=== PATIENT | female | born 1990 | race Asian ===

== ENCOUNTER 2017-05-06 12:22 | Inpatient (IN) | payer OTHER ==
[~2017-05-06] VITALS: Ht 170.2 cm; Wt 59.0 kg
[2017-05-06 12:30] VITALS: BP_SYST 121
[2017-05-06 13:34] LABS: BASOPHILS % (AUTO) 0.5 % (0.0-2.0); EOSINOPHILS # (AUTO) 0.1 K/uL (0.0-0.4); EOSINOPHILS % (AUTO) 1.7 % (0.0-4.0); HEMATOCRIT 39.8 % (36-48); HEMOGLOBIN 13.2 g/dL (12.0-16.0); LYMPHOCYTES # (AUTO) 1.6 K/uL (1.0-5.5); LYMPHOCYTES % (AUTO) 24.7 % (20.5-51.5); MEAN CORPUSCULAR HEMOGLOBIN 30 pg (27-31); MEAN CORPUSCULAR HGB CONC 33 % (32-36); MEAN CORPUSCULAR VOLUME 89 fL (79.0-98.0); MONOCYTES # (AUTO) 0.3 K/uL (0.0-1.0); MONOCYTES % (AUTO) 3.9 % (1.7-9.3); NEUTROPHILS # (AUTO) 4.6 K/uL (1.8-7.7); NEUTROPHILS % (AUTO) 69.2 % (40.0-70.0); PLATELET COUNT (AUTO) 331 K/uL (130-430); RED BLOOD CELL COUNT(AUTO) 4.48 MIL/uL (4.2-6.2); RED CELL DISTRIBUTION WIDTH 11.6 % (9.0-15.0); WHITE BLOOD COUNT (AUTO) 6.6 K/uL (4.8-10.8)
[2017-05-06 13:53] LABS: CALCIUM 9.2 mg/dL (8.4-11.0); CREATININE 0.66 mg/dL (0.55-1.30); POTASSIUM 3.6 mmol/L (3.5-5.1)
[2017-05-06 14:20] LABS: BILIRUBIN,URINE NEGATIVE (NEGATIVE); BLOOD, URINE NEGATIVE (NEGATIVE); CLARITY/URINE CLEAR (CLEAR); COLOR,URINE YELLOW (YELLOW); GLUCOSE,URINE NEGATIVE (NEGATIVE); KETONES,URINE 2+ (NEGATIVE); LEUKOCYTE ESTERASE ,URINE NEGATIVE (NEGATIVE); NITRITE, URINE NEGATIVE (NEGATIVE); PROTEIN URINE NEGATIVE (NEGATIVE); UROBILINOGEN,URINE 0.2 (0.2-1.0)
[2017-05-06 15:30] VITALS: BP_SYST 107
[2017-05-06] MEDS: VANCOMYCIN HCL 1,000 MG in NS 250 ML IV SCH (19:40)
[2017-05-06 19:44] VITALS: BP_SYST 130
[2017-05-06 23:43] VITALS: BP_SYST 105
[2017-05-07] MEDS: VANCOMYCIN HCL 1,000 MG in NS 250 ML IV SCH (03:28)
[2017-05-07 03:42] VITALS: BP_SYST 120
[2017-05-07 08:00] VITALS: BP_SYST 103
[2017-05-07 11:35] VITALS: BP_SYST 95
[2017-05-07] MEDS ORDERED: VANCOMYCIN HCL 1,000 MG in NS 250 ML IV SCH (15:00)
[2017-05-07 15:48] VITALS: BP_SYST 94
[2017-05-07] MEDS ORDERED: CEPH-568 PO (16:21)
[2017-05-07 16:44] VITALS: BP_SYST 94
== END 2017-05-07 18:10 | disposition home or self-care (01) | DRG 603 ==
LOC: SED 12:22 → STU 14:52
PROVIDERS: ADMIT Internal Medicine Hospice and Palliative Medicine; ATTEND Internal Medicine Hospice and Palliative Medicine
DX: L03.113 Cellulitis of right upper limb (principal); M79.89 Other specified soft tissue disorders; R00.2 Palpitations
CPT/HCPCS: 36415; 80048; 81003; 81025; 84443-TC; 85025; 93005; 93306; 99285; J3370; J7040; J7050

== ENCOUNTER 2017-05-10 17:47 | Emergency (ER) | payer OTHER ==
[~2017-05-10] VITALS: Ht 170.2 cm; Wt 59.9 kg
[~2017-05-10 17:47] MED LIST: CEPH-568 PO
[2017-05-10 18:00] VITALS: BP_SYST 109
--- NOTE | 2017-05-10 18:10 | NUR ---
VSS at time of triage. No acute distress noted. Pt placed in WR to await room.
--- NOTE | 2017-05-10 18:48 | NUR ---
Patient to ER [facility] [address] [facility] for evaluation. Side rails up. Report given to Lanie KUMAR.
--- NOTE | 2017-05-10 18:49 | NUR ---
SHALINI Osullivan at bedside examining patient.
--- NOTE | 2017-05-10 18:55 | NUR ---
Patient ambulated to [facility]. Patient complains of chest pain when she coughs starting today, non radiating. Denies any SOB, N/V/D. Pain 10/23. No other complaints/injuries per patient or as noted. Will continue to monitor.
[2017-05-10] MEDS ORDERED: KETOROLAC TROMETHAMINE 60 MG/2 ML VIAL IM ONE (19:00)
[2017-05-10] MEDS ORDERED: AMOXICILLIN/CLAVULANATE POTASSIUM 875 MG TABLET PO ONE (19:45)
[2017-05-10] MEDS ORDERED: BACITRACIN 1 GM OINT TP ONE (19:45)
--- NOTE | 2017-05-10 20:00 | NUR ---
Applied bacitracin on dog bites and redressed right arm with non adherent dressing and rolled gauze. Patient tolerated well.
[2017-05-10 20:30] VITALS: BP_SYST 112
--- NOTE | 2017-05-10 20:30 | NUR ---
Patient given written and verbal discharge instructions and verbalizes understanding. ER MD discussed with patient the results and treatment provided. Patient in stable condition. ID arm band removed. Rx of Motrin, Augmentin, Bacitracin given. Patient educated on pain management and to follow up with PMD. Pain Scale 2/10 tolerable to patient. Opportunity for questions provided and answered.
== END 2017-05-10 20:30 | disposition home or self-care (01) ==
LOC: SED 17:47
DX: R07.89 Other chest pain (principal); S52.91XG Unspecified fracture of right forearm, subsequent encounter for closed fracture with delayed healing; W54.0XXD Bitten by dog, subsequent encounter
CPT/HCPCS: 36415; 71010; 81025; 84484; 93005; 96372; 99285; J1885

== ENCOUNTER 2017-05-21 22:24 | Emergency (ER) | payer OTHER ==
[~2017-05-21] VITALS: Ht 170.2 cm; Wt 59.0 kg
[2017-05-21 22:32] VITALS: BP 128/94; PULSE 103; RESP 16; TEMP 98; O2SAT 96
[2017-05-21 22:57] LABS: BILIRUBIN,URINE NEGATIVE (NEGATIVE); CLARITY/URINE CLEAR (CLEAR); COLOR,URINE YELLOW (YELLOW); GLUCOSE,URINE NEGATIVE (NEGATIVE); KETONES,URINE NEGATIVE (NEGATIVE); LEUKOCYTE ESTERASE ,URINE NEGATIVE (NEGATIVE); NITRITE, URINE NEGATIVE (NEGATIVE); PROTEIN URINE NEGATIVE (NEGATIVE); UROBILINOGEN,URINE 0.2 (0.2-1.0)
[2017-05-21 23:00] LABS: BLOOD, URINE TRACE (NEGATIVE)
[2017-05-21] MEDS ORDERED: LORazepam 2 MG/ML VIAL (FOR ER USE) IVP ONE (23:00)
[2017-05-21] MEDS ORDERED: ASPIRIN 325 MG TABLET PO ONE (23:00)
[2017-05-21 23:03] LABS: BACTERIA,URINE RARE /HPF (None Seen); RBC,URINE 0-3 /HPF (0-3); WBC,URINE 0-3 /HPF (0-3)
[2017-05-21 23:13] LABS: BARBITURATE, URINE NEGATIVE (NEG <=200); BENZODIAZEPINE, URINE NEGATIVE (NEG <=150); CANNABINOID, URINE NEGATIVE (NEG <=50); COCAINE, URINE NEGATIVE (NEG <=150); METHAMPHETAMINES SCREEN,URINE NEGATIVE (NEG <=500); OPIATE, URINE NEGATIVE (NEG <=100); PHENCYCLIDINE SCREEN,URINE NEGATIVE (NEG <=25); UR TRICYCLIC ANTIDEPRESSANTS NEGATIVE (NEG <=300); URINE AMPHETAMINE NEGATIVE (NEG <=500); URINE METHADONE NEGATIVE (NEG <=200); URINE OXYCODONE SCREEN NEGATIVE (NEG <=100); URINE PROPOXYPHENE SCREEN NEGATIVE (NEG <=300)
[2017-05-22 00:01] LABS: BASOPHILS % (AUTO) 0.6 % (0.0-2.0); EOSINOPHILS # (AUTO) 0.2 K/uL (0.0-0.4); EOSINOPHILS % (AUTO) 2.3 % (0.0-4.0); HEMATOCRIT 35.7 % (36-48); HEMOGLOBIN 11.9 g/dL (12.0-16.0); LYMPHOCYTES # (AUTO) 3.2 K/uL (1.0-5.5); LYMPHOCYTES % (AUTO) 39.9 % (20.5-51.5); MEAN CORPUSCULAR HEMOGLOBIN 30 pg (27-31); MEAN CORPUSCULAR HGB CONC 33 % (32-36); MEAN CORPUSCULAR VOLUME 90 fL (79.0-98.0); MONOCYTES # (AUTO) 0.4 K/uL (0.0-1.0); MONOCYTES % (AUTO) 4.7 % (1.7-9.3); NEUTROPHILS # (AUTO) 4.2 K/uL (1.8-7.7); NEUTROPHILS % (AUTO) 52.5 % (40.0-70.0); PLATELET COUNT (AUTO) 253 K/uL (130-430); RED BLOOD CELL COUNT(AUTO) 3.97 MIL/uL (4.2-6.2); RED CELL DISTRIBUTION WIDTH 11.8 % (9.0-15.0)
[2017-05-22 00:11] LABS: CALCIUM 9.6 mg/dL (8.4-11.0); CREATININE 0.52 mg/dL (0.55-1.30); POTASSIUM 3.3 mmol/L (3.5-5.1); PROTHROMBIN TIME 9.7 SECS (9.5-12.5)
--- NOTE | 2017-05-22 00:14 | NUR ---
Patient to ER bed 3 to gown for evaluation. Side rails up. Report given to STACY KOTHARI.
--- NOTE | 2017-05-22 00:16 | NUR ---
Patient AAOx4, ambulatory. Patient states "feeling like her heart was beating fast" approximately 1 hour prior to ER visit. Patient denies chest pain at this time, denies SOB. Patient calmly resting in bed, no signs of acute respiratory distress noted. Patient denies any other complaints.
[2017-05-22 00:20] LABS: ALBUMIN 3.7 g/dL (3.4-4.8); TOTAL BILIRUBIN 0.2 mg/dL (0.0-1.0)
--- NOTE | 2017-05-22 00:20 | NUR ---
ER Dr. Gonzalez at bedside examining patient.
[2017-05-22 01:20] VITALS: BP 107/55; PULSE 74; RESP 12; TEMP 98; O2SAT 97
--- NOTE | 2017-05-22 01:20 | NUR ---
Patient given written and verbal discharge instructions and verbalizes understanding. ER MD LANDRUM discussed with patient the results and treatment provided. Patient in stable condition. ID arm band removed. IV catheter removed intact and dressing applied, no active bleeding. Rx of ATIVAN given. Patient educated on pain management and to follow up with PMD. Pain Scale 0/10. Opportunity for questions provided and answered.
== END 2017-05-22 01:20 | disposition home or self-care (01) ==
LOC: SED 22:24
DX: F41.9 Anxiety disorder, unspecified (principal)
CPT/HCPCS: 36415; 80053; 80307; 81000; 81025; 82550; 84484; 85025; 85610; 93005; 96374; 99285; J2060